=== PATIENT | female | born 1960 | race Caucasian/White ===

== ENCOUNTER 2017-07-10 12:46 | Outpatient (CLI) ==
[2016-09-03 06:47] VITALS: BMI 35.9
[2017-07-10 13:29] LABS: BASOPHILS % (AUTO) 0.4 % (0.0-3.0); EOSINOPHILS # (AUTO) 0.2 K/ul (0.0-0.7); EOSINOPHILS % (AUTO) 2.4 % (0.0-7.0); HEMATOCRIT 37.6 % (37.0-47.0); HEMOGLOBIN 12.9 g/dl (12.0-16.0); IMMATURE GRANULOCYTE % (AUTO) 0.3 % (0.0-5.0); LYMPHOCYTES # (AUTO) 2.1 K/uL (0.60-3.4); LYMPHOCYTES % (AUTO) 26.5 (10.0-50.0); MEAN CORPUSCULAR HEMOGLOBIN 29.3 pg (27.0-31.0); MEAN CORPUSCULAR HGB CONC 34.3 (31.8-35.4); MEAN CORPUSCULAR VOLUME 85.3 fl (81.0-99.0); MONOCYTES # (AUTO) 0.4 K/uL (0.4-2.0); MONOCYTES % (AUTO) 4.9 (0-10); NEUTROPHILS # (AUTO) 5.1 K/ul (2.0-6.9); NEUTROPHILS % (AUTO) 65.5; PLATELET COUNT 278 10^3/uL (140-440); RED BLOOD COUNT 4.41 10^6/ul (4.20-5.40); WHITE BLOOD COUNT 7.77 K/ul (4.6-10.2)
[2017-07-10 13:52] LABS: ALBUMIN 4.1 g/dL (3.4-5.0); ALBUMIN/GLOBULIN RATIO 1.24; ANION GAP 15.3; BILIRUBIN,TOTAL 0.67 mg/dL (0.00-1.20); BUN/CREATININE RATIO 16.04; CALCIUM 9.7 mg/dL (8.2-10.2); CHOL/HDL RATIO 4.8 (4.5-5.5); CREATININE 0.81 mg/dL (0.60-1.30); POTASSIUM 4.3 mmol/L (3.5-5.10); TOTAL PROTEIN 7.4 g/dL (6.4-8.2)
== END 2017-07-10 12:47 | disposition home or self-care (01) ==
LOC: LAB 12:46
PROVIDERS: ATTEND Nurse Practitioner Family
DX: E75.6 Lipid storage disorder, unspecified (principal); H66.91 Otitis media, unspecified, right ear; I10 Essential (primary) hypertension; J01.90 Acute sinusitis, unspecified
CPT/HCPCS: 36415; 80053; 80061; 84439; 84443; 85025

== ENCOUNTER 2017-07-14 08:41 | Outpatient (CLI) ==
[2016-09-03 06:47] VITALS: BMI 35.9
--- NOTE | 2017-07-15 08:29 | MAMMO ---
EXAM: Bilateral digital screening mammogram History: Baseline screening Findings: MLO and CC views of bilateral breasts demonstrate predominately fat replaced breast parenc hyma. CAD was reviewed by the radiologist. Benign bilateral breast calcifications. There are no do minant masses, no suspicious microcalcifications and no architectural distortions. Impression: Benign mammogram. Recommend followup routine screening mammography in 1 year. BIRADS 2
== END 2017-07-14 08:42 | disposition home or self-care (01) ==
LOC: RAD 08:41
PROVIDERS: ATTEND Nurse Practitioner Family
DX: Z12.31 Encounter for screening mammogram for malignant neoplasm of breast (principal)
CPT/HCPCS: 77067

== ENCOUNTER 2017-07-16 09:37 | Outpatient (CLI) ==
[2016-09-03 06:47] VITALS: BMI 35.9
--- NOTE | 2017-07-16 10:28 | DI ---
EXAM: Chest two view, frontal and lateral views. HISTORY: Hypertension. COMPARISON: None available. FINDINGS: The heart size is normal. There is no pulmonary vascular congestion. The lungs are clear save for focal linear subsegmental atelectasis or scarring in the medial right lung base. No pleura l effusion or pneumothorax is seen. No acute osseous abnormality identified. IMPRESSION: No acute cardiopulmonary process.
== END 2017-07-16 09:38 | disposition home or self-care (01) ==
LOC: RAD 09:37
PROVIDERS: ATTEND Nurse Practitioner Family
DX: I10 Essential (primary) hypertension (principal)
CPT/HCPCS: 93005; 93010

== ENCOUNTER 2017-10-15 06:58 | Outpatient (CLI) ==
[2016-09-03 06:47] VITALS: BMI 35.9
[2017-10-15 07:58] LABS: BASOPHILS # (AUTO) 0.1 K/uL (0-0.2); BASOPHILS % (AUTO) 0.6 % (0.0-3.0); EOSINOPHILS # (AUTO) 0.2 K/ul (0.0-0.7); EOSINOPHILS % (AUTO) 2.3 % (0.0-7.0); HEMATOCRIT 37.5 % (37.0-47.0); HEMOGLOBIN 12.6 g/dl (12.0-16.0); IMMATURE GRANULOCYTE % (AUTO) 0.2 % (0.0-5.0); LYMPHOCYTES % (AUTO) 24.4 (10.0-50.0); MEAN CORPUSCULAR HEMOGLOBIN 28.6 pg (27.0-31.0); MEAN CORPUSCULAR HGB CONC 33.6 (31.8-35.4); MONOCYTES # (AUTO) 0.4 K/uL (0.4-2.0); MONOCYTES % (AUTO) 5.4 (0-10); NEUTROPHILS # (AUTO) 5.5 K/ul (2.0-6.9); NEUTROPHILS % (AUTO) 67.1; PLATELET COUNT 262 10^3/uL (140-440); RED BLOOD COUNT 4.41 10^6/ul (4.20-5.40); WHITE BLOOD COUNT 8.19 K/ul (4.6-10.2)
--- NOTE | 2017-10-15 08:27 | US ---
EXAM: Ultrasound abdomen limited. HISTORY: Generalized abdominal pain. COMPARISON: None available. TECHNIQUE: Abdominal, real time with image documentation: limited (eg, single organ, quadrant, foll ow-up) FINDINGS: The liver demonstrates homogeneous echotexture without intrahepatic biliary dilatation. P ortal venous flow is normal in direction. The gallbladder contains numerous mobile echogenic shadowi ng structures. There is no gallbladder wall thickening or pericholecystic fluid. Common duct measur es approximately 0.4 cm. Visualized portions of the pancreas are unremarkable. IMPRESSION: Cholelithiasis.
[2017-10-15 08:37] LABS: ALBUMIN 3.5 g/dL (3.4-5.0); ALBUMIN/GLOBULIN RATIO 0.97; ANION GAP 13.1; BILIRUBIN,TOTAL 0.51 mg/dL (0.00-1.20); BUN/CREATININE RATIO 17.5; CALCIUM 9.4 mg/dL (8.2-10.2); CREATININE 0.8 mg/dL (0.60-1.30); POTASSIUM 4.1 mmol/L (3.5-5.10); TOTAL PROTEIN 7.1 g/dL (6.4-8.2)
== END 2017-10-15 06:59 | disposition home or self-care (01) ==
LOC: RAD 06:58
PROVIDERS: ATTEND Nurse Practitioner Family
DX: E75.6 Lipid storage disorder, unspecified (principal); I10 Essential (primary) hypertension; R10.84 Generalized abdominal pain
CPT/HCPCS: 36415; 80053; 80061; 84439; 84443; 85025

== ENCOUNTER 2017-10-21 07:25 | Outpatient (CLI) | payer OTHER ==
[2016-09-03 06:47] VITALS: BMI 35.9
--- NOTE | 2017-10-21 10:13 | NM ---
EXAM: Hepatobiliary imaging HISTORY: Generalized abdominal pain COMPARISON: Limited abdominal ultrasound on 10/15/2017 showed cholelithiasis. TECHNIQUE: Patient was injected 5.2 mCi of technetium 99m Choletec intravenously. Multiple anterior scintigraphic images of the right upper quadrant region of the abdomen were obtained up to 1 hour int erval. Patient was subsequently infused 1.8 mcg of Kinevac intravenously and gallbladder ejection fr action was calculated. FINDINGS: There is normal visualization of liver, gallbladder, bile duct and small bowel loops. Gall bladder ejection fraction is 44%. IMPRESSION: Normal study
== END 2017-10-21 07:26 | disposition home or self-care (01) ==
LOC: RAD 07:25
PROVIDERS: ATTEND Nurse Practitioner Family
DX: R10.84 Generalized abdominal pain (principal)

== ENCOUNTER 2018-01-04 11:39 | Outpatient (CLI) ==
[2016-09-03 06:47] VITALS: BMI 35.9
== END 2018-01-04 11:40 | disposition home or self-care (01) ==
LOC: RHC-LAB 11:39
PROVIDERS: ATTEND Nurse Practitioner Family
DX: R05 Cough (principal); R50.9 Fever, unspecified
CPT/HCPCS: 87651; 87804

== ENCOUNTER 2018-01-05 10:51 | Outpatient (CLI) ==
[2016-09-03 06:47] VITALS: BMI 35.9
== END 2018-01-05 10:52 | disposition home or self-care (01) ==
LOC: FCC-LAB 10:51
PROVIDERS: ATTEND Nurse Practitioner Family
DX: E78.00 Pure hypercholesterolemia, unspecified (principal); I10 Essential (primary) hypertension
CPT/HCPCS: 36415; 80053; 80061; 85025

== ENCOUNTER 2018-11-08 12:03 | Outpatient (CLI) ==
[2016-09-03 06:47] VITALS: BMI 35.9
== END 2018-11-08 12:04 | disposition home or self-care (01) ==
LOC: LAB 12:03 → FCC-LAB 12:04
PROVIDERS: ATTEND Family Medicine
DX: R19.7 Diarrhea, unspecified (principal); J01.41 Acute recurrent pansinusitis
CPT/HCPCS: 36415; 80053; 85025; 87502

== ENCOUNTER 2018-11-09 09:53 | Outpatient (CLI) ==
[2016-09-03 06:47] VITALS: BMI 35.9
== END 2018-11-09 09:54 | disposition home or self-care (01) ==
LOC: RHC-LAB 09:53 → FCC-LAB 09:54
PROVIDERS: ATTEND Family Medicine
DX: R19.7 Diarrhea, unspecified (principal)
CPT/HCPCS: 87493

== ENCOUNTER 2019-06-26 12:58 | Emergency (ER) ==
[2019-06-26 13:06] VITALS: BP 135/81; TEMP 98.9; BMI 34.0
[2019-06-26] MEDS ORDERED: ZOFRAN 4 MG/2 ML IVP STA (13:11)
[2019-06-26] MEDS ORDERED: DEMEROL 25 MG/ML VIAL IVP STA (13:11)
[2019-06-26] MEDS ORDERED: SODIUM CHLORIDE 1,000 ML IV STA (13:11)
--- NOTE | 2019-06-26 13:44 | CT ---
Exam: CT of the abdomen and pelvis without contrast History: Abdominal pain and vomiting Technique: [address] of the abdomen and pelvis without intravascular contrast FINDINGS: The lung bases are clear. There is a 7 mm hypodensity in the left hepatic lobe. The live r appears normal otherwise. Prior cholecystectomy. Normal pancreas, spleen and adrenal glands. Kid neys and proximal collecting system are unremarkable. The appendix is normal. Bowel loops demonstra te normal caliber. No inflamatory change seen in the mesentery or retroperitoneum. Fluid-filled sma ll intestine loops and right colon. Atherosclerotic calcification of the aorta without aneurysm. Colonic diverticulosis of the sigmoid. No pelvic fat inflammation. Prior hysterectomy. Normal urin mirna bladder. No acute abnormality of the skeleton. Impression: 1. No inflammatory process, bowel or urinary obstruction is seen. 2. Nonspecific, nonobstructive fluid-filled small intestine loops. Correlate for possible enteritis . 3. Colonic diverticulosis of the sigmoid
--- NOTE | 2019-06-26 14:56 | ED.PDOC ---
General ED Provider: Dr. MAYANK SABILLON-ER Chief Complaint: Nausea/Vomiting Stated Complaint: raoul had vomiting and diarrha Time Seen by Physician: 12:55 Mode of Arrival: Walk-In Information Source: Patient Exam Limitations: No limitations Primary Care Provider: FREDERICK MOREIRA Nursing and Triage Documentation Reviewed and Agree: Yes Does patient meet sepsis criteria?: No System Inflammatory Response Syndrome: Not Applicable Sepsis Protocol: For patient's 13 years and over: Temp is 96.8 and below OR 101 and greater Pulse >90 BPM Resp >20/minute Acutely Altered Mental Status Are patient's symptoms suggestive of a new infection, such as: -Pneumonia -Skin, Soft Tissue -Endocarditis -UTI -Bone, Joint Infection -Implantable Device -Acute Abdominal Infection -Wound Infection -Meningitis -Blood Stream Catheter Infection -Unknown GI Complaint Exam - Vomiting/Diarrhea Complaint/Exam Onset/Duration: 2 days Symptoms Are: Still present Initial Severity: Mild Current Severity: Moderate Character of Vomiting: Reports: Non-bilious Character of Diarrhea: Reports: Watery Aggravating: Reports: Food Alleviating: Reports: None Associated Signs and Symptoms: Reports: Abdominal pain [place] Respirations Present: No Differential Diagnoses: Dehydration, Viral Gastroenteritis Review of Systems - Review Of Systems Constitutional: Reports: No symptoms Eyes: Reports: No symptoms Ears, Nose, Mouth, Throat: Reports: No symptoms Respiratory: Reports: No symptoms Cardiac: Reports: No symptoms GI: Reports: Diarrhea, Nausea, Vomiting : Reports: No symptoms Musculoskeletal: Reports: No symptoms Skin: Reports: No symptoms Neurological: Reports: No symptoms Endocrine: Reports: No symptoms Hematologic/Lymphatic: Reports: No symptoms All Other Systems: Reviewed and Negative Past Medical History - Past Medical History Previously Healthy: Yes Endocrine: Reports: None Cardiovascular: Reports: None Respiratory: Reports: None Hematological: Reports: None Gastrointestinal: Reports: None Genitourinary: Reports: None Neuro/Psych: Reports: None Musculoskeletal: Reports: None Cancer: Reports: None Last Menstrual Period: none - Surgical History General Surgical History: Reports: Hysterectomy - Family History Family History: Reports: Unknown - Social History Smoking Status: Current some day smoker Hx Substance Use: No Alcohol Screening: Occasionally - Immunizations Tetanus Shot up to Date: Yes Physical Exam - Physical Exam Appearance: Well-appearing, No pain distress, Well-nourished Eyes: JN ENT: Ears normal, Nose normal, Oropharynx normal Neck: Supple Respiratory: Airway patent, Breath sounds clear, Breath sounds equal, Respirations nonlabored Cardiovascular: RRR, Pulses normal, No rub, No murmur GI/: Soft, Nontender, No masses, Bowel sounds normal, No Organomegaly Musculoskeletal: Normal strength, ROM intact, No edema, No calf tenderness Skin: Warm, Dry, Normal color Neurological: Sensation intact, Motor intact, Reflexes intact, Cranial nerves intact, Alert, Oriented Psychiatric: Affect appropriate, Mood appropriate Interpretation - Radiology Interpretation Radiology Interpretation By: Radiologist Radiology Results: Negative Exam Interpreted: CT Scan - EKG Interpretation Time of EKG #1: 13:20 Rate: Normal Rhythm: Sinus Ectopy: None [place]: NL ST Segment: Normal Interpretation: nsr Critical Care Note - Critical Care Note Total Time (mins): 0 Course - Course Hematology/Chemistry: 06/26/19 13:29 06/26/19 13:29 Orders, Labs, Meds: Lab Review 06/26/19 06/26/19 06/26/19 13:29 13:29 14:40 WBC 10.54 H RBC 3.97 L Hgb 12.3 Hct 35.3 L MCV 88.9 MCH 31.0 MCHC 34.8 RDW Coeff of [place] 13.0 Plt Count 207 Immature Gran % (Auto) 0.4 Neut % (Auto) 79.5 Lymph % (Auto) 12.6 [place] % (Auto) 5.1 Eos % (Auto) 1.9 Baso % (Auto) 0.5 Immature Gran # (Auto) 0.0 Neut # (Auto) 8.4 H Lymph # (Auto) 1.3 [place] # (Auto) 0.5 Eos # (Auto) 0.2 Baso # (Auto) 0.1 ESR 16 Sodium 138.6 Potassium 3.99 Chloride 112.0 H Carbon Dioxide 20.5 L Anion Gap 10.09 BUN 14.0 Creatinine 0.72 Estimated GFR (MDRD) 83.00 BUN/Creatinine Ratio 19.44 Glucose 97.6 Calcium 9.13 Total Bilirubin 0.82 AST 147.9 H ALT 101.7 H Alkaline Phosphatase 97.5 Total Creatine Kinase 83.5 Troponin I < 0.012 Total Protein 7.12 Albumin 4.10 Globulin 3.02 Albumin/Globulin Ratio 1.35 Amylase 69.9 Lipase 49.0 Urine Color Yellow Urine Clarity Clear Urine pH 5.5 Ur Specific [place] 1.015 Urine Protein Negative Urine Glucose (UA) Negative Urine Ketones Negative Urine Blood Negative Urine Nitrite Negative Urine Bilirubin Negative Urine Urobilinogen 0.2 Ur Leukocyte Esterase Negative Orders Category Date Time Status EKG-(ED ONLY) Stat CARDIO 06/26/19 13:11 Completed ED IV/MEDIPORT/POWERPORT .ONCE EMERGENCY 06/26/19 13:11 Active AMYLASE Stat LAB 06/26/19 13:29 Completed CBC W/ AUTO DIFF Stat LAB 06/26/19 13:29 Completed COMPREHENSIVE METABOLIC PANEL Stat LAB 06/26/19 13:29 Completed CREATINE KINASE Stat LAB 06/26/19 13:29 Completed ESR Stat LAB 06/26/19 13:29 Completed LIPASE Stat LAB 06/26/19 13:29 Completed MOLECULAR GROUP A STREP Stat LAB 06/26/19 13:45 Completed TROPONIN I Stat LAB 06/26/19 13:29 Completed URINALYSIS C & S IF INDICATED Stat LAB 06/26/19 14:40 Completed 0.9 % Sodium Chloride [Saline Flush] MEDS 06/26/19 13:10 Active 1 syr IVF PRN PRN Meperidine HCl/Pf [Demerol 25 mg/ml Vial] MEDS 06/26/19 13:11 Discontinued 25 mg IVP ONCE STA Ondansetron HCl/Pf [Zofran 4 mg/2 ml] MEDS 06/26/19 13:11 Discontinued 4 mg IVP ONCE STA Sodium Chloride 0.9% [Sodium Chloride] 1,000 ml MEDS 06/26/19 13:[address] ABDOMEN/PELVIS WO CONTRAST Stat RADS 06/26/19 13:12 Completed Medications Generic Name Dose Route Start Last Admin Trade Name Freq PRN Reason Stop Dose Admin Sodium Chloride 1 syr 06/26/19 13:10 06/26/19 13:38 Saline Flush IVF 1 syr PRN PRN Administration To flush IV Discontinued Medications Generic Name Dose Route Start Last Admin Trade Name Freq PRN Reason Stop Dose Admin Sodium Chloride 1,000 mls @ 1,000 mls/hr 06/26/19 13:11 06/26/19 13:38 Sodium Chloride IV 06/26/19 14:10 1,000 mls/hr BOLUS STA Administration Meperidine HCl 25 mg 06/26/19 13:11 06/26/19 13:38 Demerol 25 Mg/Ml Vial IVP 06/26/19 13:12 Not Given ONCE STA Ondansetron HCl 4 mg 06/26/19 13:11 06/26/19 13:38 Zofran 4 Mg/2 Ml IVP 06/26/19 13:12 4 mg ONCE STA Administration Vital Signs: Temp Pulse Resp BP Pulse Ox 06/26/19 12:58 98.9 F 84 20 135/81 95 Departure - Departure Time of Disposition: 14:56 Disposition: HOME SELF-CARE Discharge Problem: Enteritis Instructions: Enteritis (ED) Condition: Good Pt referred to PMD for follow-up: Yes IPMP verified?: No Additional Instructions: lactose free x 3 days---f/u with pcp Allergies/Adverse Reactions: Allergies Influenza Virus Vaccines Allergy (Severe, Unverified 06/26/19 14:37) Unknown Caused hospitalization povidone-iodine [From Betadine] Allergy (Intermediate, Unverified 06/26/19 14:37 ) Hives, itching soap [From Betadine] Allergy (Intermediate, Unverified 06/26/19 14:37) Hives, itching pseudoephedrine HCl [From Sudafed] Adverse Reaction (Intermediate, Unverified 14:37) HTN codeine Adverse Reaction (Verified 06/26/19 14:37) TONGUE SWELLS, CANT BREATHE erythromycin base Adverse Reaction (Verified 06/26/19 14:37) HIVES, TONGUE SWELLS, CANT BREATHE morphine Adverse Reaction (Verified 06/26/19 14:37) TONGUE SWELLS, CANT BREATHE Home Medications: Ambulatory Orders Acetaminophen [Tylenol] 1 - 2 tab PO Q4-6H PRN 09/03/16 Dm/P-Ephed/Acetaminoph/Doxylam [Cherelle-[place] Plus Cold+Flu Pkt] 1 pkt PO BID PRN 09/03/16 Ibuprofen [Advil] 200 mg PO BID PRN 09/03/16 Pseudoephedrine HCl [Sudafed] 30 mg PO BID PRN 09/03/16 Zinc Gluconate-Zinc Picolinate [Zinc] 5 mg PO DAILY 04/25/19 Disposition Discussed With: Patient, Family
== END 2019-06-26 15:08 | disposition home or self-care (01) ==
LOC: ED 12:58
DX: K52.9 Noninfective gastroenteritis and colitis, unspecified (principal); F17.210 Nicotine dependence, cigarettes, uncomplicated
CPT/HCPCS: 36415; 80053; 81001; 82150; 82550; 83690; 84484; 85025; 85651; 87651; 93005; 93010; 96361; 96374; 99284